=== PATIENT | male | born 1955 | race Caucasian/White ===

== ENCOUNTER → 2019-07-04 | Outpatient (REF) | payer OTHER ==
[~2019-07-04] MED LIST: ATOR40TA75 PO; CARV6.25 PO; CIPR-249 PO; FAMO1TAB11 PO; FLAG500T PO; FURO20TA2 PO; LISI2.5T76 PO; PLAV1TAB2 PO; SM S160C PO; TERA2CAP3 PO
[2019-07-04 16:58] LABS: ALBUMIN 3.6 GM/DL (3.2-5.2); ALT/SGPT 37 U/L (12-78); BILIRUBIN,TOTAL 0.5 MG/DL (0.2-1.0); BLOOD UREA NITROGEN 16 MG/DL (7-18); CALCIUM LEVEL 8.8 MG/DL (8.8-10.2); CARBON DIOXIDE LEVEL 28 MEQ/L (21-32); CHLORIDE LEVEL 110 MEQ/L (98-107); CHOLESTEROL LEVEL 88 MG/DL (<200); CHOLESTEROL RISK RATIO 2.315 (<5); CREATININE FOR GFR 0.91 MG/DL (0.70-1.30); GLOMERULAR FILTRATION RATE > 60.0 (>49); GLUCOSE, FASTING 107 MG/DL (70-100); HDL CHOLESTEROL 38 MG/DL (>40); LDL CHOLESTEROL 33 MG/DL (<100); NON-HDL-C 50 MG/DL; POTASSIUM SERUM 4.6 MEQ/L (3.5-5.1); SODIUM LEVEL 142 MEQ/L (136-145); TOTAL PROTEIN 7.1 GM/DL (6.4-8.2); TRIGLYCERIDES LEVEL 83 MG/DL (<150)
[2019-07-04 18:21] LABS: HEMOGLOBIN A1c 6.1 %
== END ==
LOC: M SFHCCLAY 10:29
PROVIDERS: ATTEND Family Medicine
DX: R73.01 Impaired fasting glucose (principal); I25.118 Atherosclerotic heart disease of native coronary artery with other forms of angina pectoris; R05 Cough

== ENCOUNTER 2019-07-13 00:22 | Observation (INO) | payer MEDICARE, OTHER ==
[~2019-07-13] VITALS: Ht 167.6 cm; Wt 82.7 kg
[2019-07-13] MEDS ORDERED: NS 1,000 ML IV ONE (00:45)
[2019-07-13 00:54] LABS: BASO % 0.2 % (0.0-1.0); EOS % 0.2 % (0.0-3.0); HEMATOCRIT 40.2 % (42.0-52.0); HEMOGLOBIN 13.6 g/dl (13.5-17.5); LYMPH # 1.5 10^3/uL (1.5-5.0); LYMPH % 8.7 % (24.0-44.0); MEAN CORPUSCULAR HEMOGLOBIN 33.7 pg (27.0-33.0); MEAN CORPUSCULAR HGB CONC 33.8 g/dl (32.0-36.5); MEAN CORPUSCULAR VOLUME 99.5 fl (80.0-96.0); MONO # 1.1 10^3/uL (0.0-0.8); MONO % 6.5 % (0.0-5.0); NEUTROPHILS # 14.3 10^3/uL (1.5-8.5); PLATELET COUNT, AUTOMATED 257 10^3/uL (150-450); RED BLOOD COUNT 4.04 10^6/uL (4.30-6.10)
[2019-07-13] MEDS ORDERED: METOCLOPRAMIDE INJ 10MG/2ML VIAL (J2765) IV ONE (01:15)
[2019-07-13 01:18] LABS: ALBUMIN 3.9 GM/DL (3.2-5.2); ALT/SGPT 40 U/L (12-78); BILIRUBIN,DIRECT 0.2 MG/DL (0.0-0.2); BILIRUBIN,TOTAL 0.8 MG/DL (0.2-1.0); BLOOD UREA NITROGEN 16 MG/DL (7-18); CALCIUM LEVEL 9.1 MG/DL (8.8-10.2); CARBON DIOXIDE LEVEL 24 MEQ/L (21-32); CHLORIDE LEVEL 109 MEQ/L (98-107); CK-MB VALUE MASS < 1.0 NG/ML (<3.6); CPK CREATINE PHOSPHOKINASE 106 U/L (39-308); CREATININE FOR GFR 1.04 MG/DL (0.70-1.30); GLOMERULAR FILTRATION RATE > 60.0 (>49); GLUCOSE, FASTING 131 MG/DL (70-100); LIPASE 363 U/L (73-393); MB/CK RELATIVE INDEX 0.94 (< OR =4); POTASSIUM SERUM 4.3 MEQ/L (3.5-5.1); SODIUM LEVEL 144 MEQ/L (136-145); TOTAL PROTEIN 7.4 GM/DL (6.4-8.2); TROPONIN I < 0.02 NG/ML (< 0.10)
[2019-07-13] MEDS ORDERED: NS 500 ML IV ONE (02:00)
[2019-07-13] MEDS ORDERED: HALOPERIDOL 5 MG/ML VIAL (J1630) IV STA (02:30)
[2019-07-13] MEDS ORDERED: diphenhydrAMINE INJ 50MG/ML VIAL (J1200) IV STA (02:30)
[2019-07-13] MEDS ORDERED: ISOVUE-370 76% 100ML VIAL (Q9967) As Ordered ONE (02:37)
--- NOTE | 2019-07-13 03:56 | REPVR ---
EXAM: CT Abdomen and Pelvis With Contrast EXAM DATE/TIME: 07/13/2019 2:44 AM CLINICAL HISTORY: 64 years old, male; Abdominal pain; Generalized TECHNIQUE: Imaging protocol: Computed tomography of the abdomen and pelvis with intravenous contrast. Radiation optimization: All CT scans at this facility use at least one of these dose optimization techniques: automated exposure control; mA and/or kV adjustment per patient size (includes targeted exams where dose is matched to clinical indication); or iterative reconstruction. Contrast material: ISOVUE 370; Contrast volume: 100 ml; Contrast route: IV; COMPARISON: No relevant prior studies available. FINDINGS: LUNG BASES: Mild atelectasis and/or pulmonary parenchymal scarring. VASCULAR: No abdominal aortic aneurysm, dissection, or retroperitoneal hematoma. Mild atherosclerosis. PERITONEAL : No free air or free fluid. GI: No hiatal hernia. The stomach is distended with an air-fluid level, to 23.3 cm in diameter. The duodenum is also fluid filled and slightly distended up to 3.3 cm in diameter. Gastric distention could be secondary to distal obstruction, differential would also include gastroparesis or gastric outlet obstruction. Fluid filled small bowel loops in the central upper abdomen are dilated up to 3.2 cm in diameter. There appears to be slight wall thickening and mesenteric edema associated with these loops. A focal point of transition is not identified, however small bowel loops in the pelvis are decompressed. Some small bowel loops distal to the site of dilation appear to be thickwalled. Findings are concerning for small bowel obstruction. Obstruction may be secondary to enteritis. Consider small bowel follow through for further evaluation. No pneumatosis intestinalis or mesenteric venous gas seen. Small nonspecific mesenteric lymph nodes noted. Scattered fecal material and gas within portions of the colon and rectum. No pericolonic inflammatory stranding. No evidence of acute diverticulitis. The appendix does not appear inflamed. Portions of the colon and rectum appear slightly thick walled but this could be artifact secondary to insufficient distention. HEPATOBILIARY, PANCREAS, SPLEEN: The liver is not enlarged. No enhancing hepatic lesion seen. No calcified gallstones or biliary dilation. No pancreatic inflammation. The spleen is hypoplastic and measures 3.3 x 1.5 cm. ADRENALS, KIDNEYS, BLADDER, RETROPERITONEAL: Adrenals within normal limits. No hydronephrosis. Symmetric renal enhancement. Mild nonspecific perinephric stranding. The urinary bladder appears slightly thickwalled but this may be artifact secondary to insufficient distention. Mild heterogeneity of the prostate with mild enlargement impressing along the base of the bladder. MUSCULOSKELETAL: Tiny fat containing umbilical hernia. Small fat containing right inguinal hernia. Mild degenerative changes of the spine and pelvis. No acute fracture or suspicious bone lesion. IMPRESSION: Gastric and proximal small bowel dilation. Gastrointestinal findings, differential and recommendations discussed above in detail. Other incidental findings discussed above. Electronically signed by: Elian Esposito On 07/13/2019 03:55:20 AM
[2019-07-13] MEDS ORDERED: SM S160C PO (05:30)
[2019-07-13] MEDS ORDERED: CARV6.25 PO (05:30)
[2019-07-13] MEDS ORDERED: FAMO1TAB11 PO (05:30)
[2019-07-13] MEDS ORDERED: TERA2CAP3 PO (05:30)
[2019-07-13] MEDS ORDERED: ATOR40TA75 PO (05:30)
[2019-07-13] MEDS ORDERED: PLAV1TAB2 PO (05:30)
[2019-07-13] MEDS ORDERED: FURO20TA2 PO (05:30)
[2019-07-13] MEDS ORDERED: LISI2.5T76 PO (05:37)
--- NOTE | 2019-07-13 05:42 | HPEPDOC ---
[facility] Medical History & Physical Date of Admission Jul 13, 2019 Date of Service: Jul 13, 2019 Primary Care Physician: Avery Doyle Attending Physician: BRE ELIZONDO MD History and Physical TIME OF SERVICE: 5:50 PM CHIEF COMPLAINT: Abdominal pain HISTORY OF PRESENT ILLNESS: This is a 64-year-old male who came to the hospital with complaints of left- sided 10/10 in severity, nonradiating abdominal pain that began last night. He went to a social event and while driving home, he developed nausea thereafter, he began vomiting. Because he had been vomiting several times. He called EMS. He admits to having blood in the vomit, fevers and chills, and chest pain due to the vomiting. After receiving pain medications. His pain improved to 2 out of 10 in severity. Per discussion with the ED attending the EKG and troponin were unremarkable, CT of the abdomen showed enteritis versus possible colitis; he received IV fluids, Zofran, Imodium, haloperidol, Benadryl and Reglan. REVIEW OF SYSTEMS: 12 point review of systems negative except as listed in HPI PAST MEDICAL/ SURGICAL HISTORY: CAD/sp stent ( status post 2 MIs) Chronic HTN Pre-DM GERD SOCIAL HISTORY: non-smoker lives alone FAMILY HISTORY: Cancer ALLERGIES: Please see below. HOME MEDICATIONS: Please see below. PHYSICAL EXAMINATION: VITAL SIGNS: Please see below. GENERAL APPEARANCE: Well-nourished, well-developed, not in apparent distress HEENT: Normocephalic, atraumatic, mucous members moist and pink, NG to suction with more than 200 mL of coffee-ground substance in suction container CARDIOVASCULAR: Regular rate and rhythm. No murmurs, rubs or gallops. Radial pulses are intact is no extremity edema LUNGS: Clear to auscultation bilaterally on room air ABDOMEN: Bowel sounds hypoactive. Abdomen soft, nontender, not distended, bowel sounds MUSCULOSKELETAL: Range of motion intact in all 4 extremities NEUROLOGICAL: Cranial nerves II-12 grossly intact. Speech not dysarthric PSYCHIATRIC: Alert and oriented, able to understand and follow commands LABORATORY DATA: See below. IMAGING: CT abdomen shows a distended stomach that could be due to distal obstruction versus enteritis. MICROBIOLOGY: Please see below. ASSESSMENT: Mr. Miller is a 64-year-old male with a past medical history of CA affecting the right ear, prediabetes, and hypertension who is admitted for management of nausea and vomiting due to enteritis versus small bowel obstruction. PLAN: Sepsis 2/2 Enteritis / SBO -SIRS criteria WBC # of 17 w lactic acid of 3.3 & RR of 20 -Qsofa Score = O = low risk Plan: admit to PCU / telemetry / Sepsis protocol w repeat lactic acid / one dose of Cipro / c/w IVF, NG to sucction /f/u blood cx / Zofran / NPO / Gen Surg Consult / Morphine PRN for pain 2. Coffee Ground Emesis possibly 2/2 retching -has hx of GERD -Hg wnl but pt is dehydrated -Senthil-Blatchford Score to identify low risk UGIB = 0 = "A GBS of 0 is a Low Risk GI bleed, and is highly sensitive (99.6% in a 2007 retrospective study) for predicting which patients did not require any medical intervention: blood transfusion, endoscopy, or surgery." Plan: IV PPI / Sandostatin / Cipro / f/u w Gen Surg / follow-up serial hemoglobin 3. CAD/sp stent Plan: hold oral meds 4. Chronic HTN Plan: IV labetalol when necessary while nothing by mouth 5. Pre-DM. Plan: Follow-up Accu-Cheks DVT px w SCDs Disposition pending clinical course Vital Signs Vital Signs Date Time Temp Pulse Resp B/P (MAP) Pulse Ox O2 Delivery O2 Flow Rate FiO2 07/13/19 03:15 98 93 07/13/19 03:00 154/77 (102) 07/13/19 00:34 97.9 18 Room Air Laboratory Data Labs 24H Laboratory Tests 2 07/13/19 00:44: Immature Granulocyte % (Auto) 0.4, White Blood Count 17.0H, Red Blood Count 4.04L, Hemoglobin 13.6, Hematocrit 40.2L, Mean Corpuscular Volume 99.5H, Mean Corpuscular Hemoglobin 33.7H, Mean Corpuscular Hemoglobin Concent 33.8, Red Cell Distribution Width 13.6, Platelet Count 257, Neutrophils (%) (Auto) 84.0H, Lymphocytes (%) (Auto) 8.7L, Monocytes (%) (Auto) 6.5H, Eosinophils (%) (Auto) 0.2, Basophils (%) (Auto) 0.2, Neutrophils # (Auto) 14.3H, Lymphocytes # (Auto) 1.5, Monocytes # (Auto) 1.1H, Eosinophils # (Auto) 0.0, Basophils # (Auto) 0.0, Nucleated Red Blood Cells % (auto) 0.0, Anion Gap 11, Glomerular Filtration Rate > 60.0, Lactic Acid Level 3.3*H, Calcium Level 9.1, Aspartate Amino Transf (AST/SGOT) 23, Alanine Aminotransferase (ALT/SGPT) 40, Alkaline Phosphatase 62, Total Bilirubin 0.8, Direct Bilirubin 0.2, Total Creatine Kinase 106, Creatine Kinase MB < 1.0, Creatine Kinase MB Relative Index 0.94, Troponin I < 0.02, Total Protein 7.4, Albumin 3.9, Albumin/Globulin Ratio 1.11, Lipase 363 CBC/BMP Laboratory Tests 07/13/19 00:44 Red Blood Count 4.04 L, Mean Corpuscular Volume 99.5 H, Mean Corpuscular Hemoglobin 33.7 H, Mean Corpuscular Hemoglobin Concent 33.8, Red Cell Dist ribution Width 13.6, Neutrophils (%) (Auto) 84.0 H, Lymphocytes (%) (Auto) 8.7 L, Monocytes (%) (Auto) 6.5 H, Eosinophils (%) (Auto) 0.2, Basophils (%) (Auto) 0.2, Neutrophils # (Auto) 14.3 H, Lymphocytes # (Auto) 1.5, Monocytes # (Auto) 1.1 H, Eosinophils # (Auto) 0.0, Basophils # (Auto) 0.0 Microbiology Microbiology 07/13/19 Blood Culture, Received Pending Home Medications Scheduled Atorvastatin Calcium (Atorvastatin Calcium) 40 Mg Tablet, 40 MG PO DAILY Carvedilol (Carvedilol) 6.25 Mg Tablet, 6.25 MG PO BID Clopidogrel Bisulfate (Plavix) 75 Mg Tablet, 75 MG PO DAILY Famotidine (Famotidine) 20 Mg Tablet, 20 MG PO QHS Furosemide (Furosemide) 20 Mg Tablet, 20 MG PO QHS Lisinopril (Lisinopril) 2.5 Mg Tablet, 2.5 MG PO DAILY DISCONTINUED BY PHYSICIAN ONE WEEK AGO Saw Eureka (Saw Eureka) 160 Mg Capsule, 160 MG PO DAILY Terazosin HCl (Terazosin HCl) 2 Mg Capsule, 2 MG PO QHS Allergies Coded Allergies: nisoldipine (Verified Allergy, Mild, agaitation, 07/13/19) A-FIB/CHADSVASC A-FIB History Current/History of A-Fib/PAF?: No Current PO Anticoag Therapy: No BRE ELIZONDO MD Jul 13, 2019 05:42
[2019-07-13] MEDS ORDERED: ONDANSETRON 4MG/2ML VIAL (J2405) IV PRN (05:45)
[2019-07-13] MEDS ORDERED: metroNIDAZOLE 500 MG in APPROPRIATE DILUENT 1 EA IV SCH (06:00)
[2019-07-13] MEDS ORDERED: MORPHINE 4 MG/ML 1ML VIAL/SYRINGE (J2270) IV PRN (06:00)
[2019-07-13] MEDS: NS 1,000 ML IV SCH ×3 (06:07→21:29)
[2019-07-13] MEDS ORDERED: LABETALOL HCL 100 MG/20 ML VIAL IV PRN (06:30)
[2019-07-13] MEDS ORDERED: CIPROFLOXACIN 400 MG in APPROPRIATE DILUENT 1 EA IV ONE (07:00)
[2019-07-13] MEDS ORDERED: OCTREOTIDE ACETATE 1,200 MCG in NS 238.8 ML IV SCH (07:30)
[2019-07-13 08:00] VITALS: BP 160/72
[2019-07-13] MEDS ORDERED: ENOXAPARIN 40 MG/0.4 ML SYRINGE (J1650) SC SCH (09:00)
[2019-07-13 12:00] VITALS: BP 136/73
[2019-07-13 16:00] VITALS: BP 140/90
--- NOTE | 2019-07-13 16:59 | CR ---
DATE OF CONSULTATION: 07/13/2019 REASON FOR CONSULTATION: Abdominal pain with nausea and vomiting, evaluate for possible obstruction. 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 He reports that he was feeling well on 07/12/2019. 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 After about an hour at the [employer] he began to feel some abdominal fullness and returned home. Shortly thereafter, he developed more severe pain in the left midabdomen and left upper quadrant. He developed vomiting and had multiple episodes of vomiting. The pain became very severe. He reported that he felt like he was unable even to drive himself to the emergency room so he called for an ambulance and he was brought in for evaluation. He reports that he had noticed some small streaks of blood in his emesis. In the emergency department, he received some antiemetics and fluid boluses as well as analgesics. His pain diminished. A nasogastric tube was placed. He had laboratory studies and a CT scan obtained. The CT scan revealed a fluid-filled, somewhat distended abdomen. There was some mild dilation of the proximal small bowel with fluid and some air. A transition point was not identified. The patient was admitted by the hospitalist for treatment but I am consulted to evaluate the patient regarding the possibility of an anatomic obstruction. MEDICATIONS: The patient's home medications include: - atorvastatin 40 mg by mouth daily - carvedilol 6.25 mg twice daily - clopidogrel 75 mg by mouth daily - famotidine 20 mg by mouth every night - furosemide 20 mg daily in the evening - lisinopril 2.5 mg by mouth daily, though the patient reports this had been stopped a week ago - saw palmetto 160 mg by mouth daily - terazosin 2 mg by mouth nightly ALLERGIES: The patient reports an allergy to NISOLDIPINE. PAST SURGICAL HISTORY: The patient denies any prior abdominal surgery. He did have several coronary artery stents placed back in 2015 and 2017. MEDICAL HISTORY: The patient had a myocardial infarction in 2016. He had three stents placed at that time and apparently had several additional stents placed in 2017. He has a history of benign prostatic hyperplasia. He has a history of hypertension. He has been having a cough and there has been some concern that that may be related to his lisinopril. SOCIAL HISTORY: The patient is single. 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 He is a nonsmoker and does not drink excessively. FAMILY HISTORY: His father apparently succumbed to pancreatic cancer. His mother is from a myocardial infarction. He has another sister who had pancreatic cancer and succumbed. REVIEW OF SYSTEMS: He has had no recent chest pain or palpitations. He denies any history of melena or hematochezia. There is no history of dysuria or hematuria. There are no bone or joint issues. He has no history of DVT or pulmonary embolus. He has not had any abdominal surgery and denies any history of similar prior episodes of abdominal pain and vomiting. PHYSICAL EXAMINATION: Patient is lying quietly in the hospital bed in the PCU. He has a small diameter nasogastric tube in place which is draining a small amount of watery, very slightly green colored fluid with some flecks of material. His most recent vital signs show him to be afebrile with a pulse of approximately 90 and blood pressure of 160/72. The patient is alert and oriented. Skin is warm and dry. Skin turgor is good. Neck is supple without mass. Heart exam shows a regular rate and rhythm. The lungs are clear to auscultation. The abdomen is nondistended. He has no evident scars. There is no sign of umbilical or inguinal hernia. He has bowel sounds present in all four quadrants. There is no tympany to percussion and no tenderness to percussion. The abdomen is soft throughout without significant tenderness at this time. Extremities are without edema and he has palpable radial and dorsalis pedis pulses. Laboratory studies from early this morning show white count of 17 with a hemoglobin of 14, hematocrit of 40 and platelet count of 257,000. His differential count at that time showed 84% neutrophils, 9% lymphocytes and 6% monocytes. His chemistry profile showed a sodium of 144, potassium 4.3, chloride 109, CO2 of 24, BUN of 16, creatinine 1.0 and a glucose of 131. Liver function tests were entirely normal with a total protein of 7.4 and albumin of 3.9. Lipase was normal at 363. He had an initial lactic acid of 3.3 but after hydration it was 1.2. I reviewed his CT scan images myself. He does have a primarily fluid-filled stomach. The duodenum and proximal jejunum is mildly distended with fluid but in the still upper abdomen the small bowel returns to normal caliber and otherwise appears normal with a normal colon. There is no free fluid and no free air. The gallbladder is without evidence of inflammation or gallstones. The spleen is atrophic or just very small. 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 This sounds more suggestive of either a sudden onset of some gastroenteritis or possibly something in the realm of food poisoning. He does not have a prior history of similar episodes. He has had no abdominal surgery and his x-ray I do not believe shows enough to suggest a definite anatomic obstruction. RECOMMENDATIONS: At this point I would continue his NG tube in place for now just to decompress his stomach. He should receive maintenance fluid as well as analgesics and antiemetics as necessary. I would anticipate that by the morning his NG output would decrease and as long as he has evidence for good bowel sounds I would probably remove his NG tube at that time and consider advancing him to some clear liquids. I will reassess him in the morning and see how things have progressed.
[2019-07-13 20:00] VITALS: BP 151/77
--- NOTE | 2019-07-13 20:33 | ECGEPIP ---
[facility] - ED Test Date: 2019-07-13 Pat Name: MICHELLE THORPE Department: Room: 0102 Gender: Male Retail Merchandiser: tremaine : 1955 Requested By: JARRET WYNN Order Number: [id number] Reading MD: Lyn Rivera Measurements Intervals [place] Rate: 86 P: 36 WI: 266 QRS: -10 QRSD: 80 T: 48 QT: 351 QTc: 421 Interpretive Statements SINUS RHYTHM WITH FIRST DEGREE AV BLOCK WITH OCCASIONAL SUPRAVENTRICULAR PREMATURE COMPLEXES INFERIOR MYOCARDIAL INFARCTION, OF INDETERMINATE AGE Anteroseptal infarct age indeterminate 07/20/16 STEMI ANTEROSEPTAL Electronically Signed on 07-13-2019 20:32:49 EDT by Lyn Rivera
[2019-07-13 23:59] VITALS: BP 144/70
[2019-07-14 04:00] VITALS: BP 160/79
[2019-07-14 05:47] LABS: BASO # 0.1 10^3/uL (0.0-0.2); BASO % 0.5 % (0.0-1.0); EOS # 0.2 10^3/uL (0.0-0.5); EOS % 1.1 % (0.0-3.0); HEMATOCRIT 34.7 % (42.0-52.0); HEMOGLOBIN 11.6 g/dl (13.5-17.5); LYMPH # 4.3 10^3/uL (1.5-5.0); LYMPH % 31.5 % (24.0-44.0); MEAN CORPUSCULAR HEMOGLOBIN 32.7 pg (27.0-33.0); MEAN CORPUSCULAR HGB CONC 33.4 g/dl (32.0-36.5); MEAN CORPUSCULAR VOLUME 97.7 fl (80.0-96.0); MONO # 1.6 10^3/uL (0.0-0.8); MONO % 11.4 % (0.0-5.0); NEUTROPHILS # 7.6 10^3/uL (1.5-8.5); NEUTROPHILS % 55.3 % (36.0-66.0); PLATELET COUNT, AUTOMATED 219 10^3/uL (150-450); RED BLOOD COUNT 3.55 10^6/uL (4.30-6.10); WHITE BLOOD COUNT 13.8 10^3/uL (4.0-10.0)
[2019-07-14 06:19] LABS: ALT/SGPT 27 U/L (12-78); BILIRUBIN,TOTAL 0.6 MG/DL (0.2-1.0); BLOOD UREA NITROGEN 18 MG/DL (7-18); CALCIUM LEVEL 7.7 MG/DL (8.8-10.2); CARBON DIOXIDE LEVEL 24 MEQ/L (21-32); CHLORIDE LEVEL 114 MEQ/L (98-107); CREATININE FOR GFR 0.93 MG/DL (0.70-1.30); GLOMERULAR FILTRATION RATE > 60.0 (>49); GLUCOSE, FASTING 92 MG/DL (70-100); MAGNESIUM LEVEL 1.8 MG/DL (1.8-2.4); POTASSIUM SERUM 3.9 MEQ/L (3.5-5.1); SODIUM LEVEL 144 MEQ/L (136-145)
[2019-07-14 08:00] VITALS: BP 142/82
[2019-07-14] MEDS ORDERED: E-Z-PAQUE 96% w/w SUSP 176GM BTL As Ordered ONE (08:18)
[2019-07-14] MEDS: NS 1,000 ML IV SCH (08:24)
--- NOTE | 2019-07-14 10:11 | IPNPDOC ---
Subjective Date Seen The patient was seen on 07/14/19. Subjective Chief Complaint/HPI Patient is feeling much better today after the NG tube was placed in and the contents were suctioned. No more abdominal pain. Awaiting surgical follow-up General: Denies: ROS Unobtainable, Chills, Night Sweats, Fatigue, Malaise, Normal Appetite, Other Symptoms Constitutional: Denies: Chills, Fever, Malaise, Night Sweats, Weakness, Fatigue, Weight Loss, Lethargy, Other Eyes: Denies: Pain, Vision change, Conjunctivae inflammation, Eyelid inflammation, Redness, Other ENT: Denies: Head Aches, Ear Pain, Dysphagia, Sinus Congestion, Post Nasal Drip, Sore Throat, Epistaxis, Other Symptoms Skin: Denies: Rash, Lesions, Jaundice, Bruising, Itching, Dry, Breakdown, Nail Changes, Other Pulmonary: Denies: Dyspnea, Cough, Pleuritic Chest Pain, Other Symptoms Cardiovascular: Denies: Chest Pain, Palpitations, Orthopnea, Paroxysmal Noc. Dyspnea, Edema, Lt Headedness, Other Symptoms Gastrointestinal: Denies: Nausea, Vomiting, Abdominal Pain, Diarrhea, Constipation, Melena, Hematochezia, Other Symptoms Musculoskeletal: Denies: Neck Pain, Back Pain, Shoulder Pain, Arm Pain, Hand Pain, Leg Pain, Foot Pain, Joint Pain, Muscle Pain, Spasms, Other Symptoms Neurological: Denies: Weakness, Numbness, Incoordination, Change in speech, Confusion, Seizures, Other Symptoms Objective Physical Examination General Exam: Positive: Alert, Cooperative ENT Exam: Positive: Atraumatic, Mucous membr. moist/pink Neck Exam: Positive: Supple Chest Exam: Positive: Clear to auscultation, Normal air movement Heart Exam: Positive: Rate Normal, Normal S1, Normal S2 Abdomen Exam: Positive: Normal bowel sounds Skin Exam: Positive: Nl turgor and temperature Neuro Exam: Positive: Normal Gait, Normal Speech Assessment /Plan Problems (1) Enteritis Status: Acute Problem Text: NG tube with intermittent suction was continued overnight and now clamped Patient responded to conservative medical management very well Will continue IV antibiotics including Cipro and Flagyl Continue IV fluids till patient starts eating again Surgery. Will follow patient today and if necessary will remove the NG tube and start patient diet as tolerated Level work in a.m. If he tolerates diet today and WBC and WBC is trending down. Patient is asymptomatic and possibly can be discharged home tomorrow (2) SBO (small bowel obstruction) Status: Acute Problem Text: Doubt SBO Discussed with surgery. Patient was seen and evaluated yesterday Advised to continue NG tube delivery evaluated by surgery today Patient is positive bowel sounds and possibly NG tube will be removed today and will start on oral feeding (3) HTN (hypertension) Status: Acute Problem Text: Under well control Plan/VTE VTE Prophylaxis Ordered?: Yes VS, I&O, 24H, Fishbone Vital Signs/I&O Vital Signs Date Time Temp Pulse Resp B/P (MAP) Pulse Ox O2 Delivery O2 Flow Rate FiO2 07/14/19 08:00 97.6 69 17 142/82 (102) 96 07/13/19 07:25 Room Air I&O- Last 24 Hours up to 6 AM 07/14/19 06:00 Intake Total 1100 ml Output Total 1950 ml Balance -850 ml Laboratory Data 24H LABS Laboratory Tests 2 07/14/19 05:36: Immature Granulocyte % (Auto) 0.2, White Blood Count 13.8H, Red Blood Count 3.55L, Hemoglobin 11.6L, Hematocrit 34.7L, Mean Corpuscular Volume 97.7H, Mean Corpuscular Hemoglobin 32.7, Mean Corpuscular Hemoglobin Concent 33.4, Red Cell Distribution Width 13.9, Platelet Count 219, Neutrophils (%) (Auto) 55.3, Lymphocytes (%) (Auto) 31.5, Monocytes (%) (Auto) 11.4H, Eosinophils (%) (Auto) 1.1, Basophils (%) (Auto) 0.5, Neutrophils # (Auto) 7.6, Lymphocytes # (Auto) 4.3, Monocytes # (Auto) 1.6H, Eosinophils # (Auto) 0.2, Basophils # (Auto) 0.1, Nucleated Red Blood Cells % (auto) 0.0, Anion Gap 6L, Glomerular Filtration Rate > 60.0, Blood Urea Nitrogen 18, Creatinine 0.93, Sodium Level 144, Potassium Level 3.9, Chloride Level 114H, Carbon Dioxide Level 24, Calcium Level 7.7#L, Aspartate Amino Transf (AST/SGOT) 18, Alanine Aminotransferase (ALT/SGPT) 27, A lkaline Phosphatase 48, Total Bilirubin 0.6, Total Protein 6.0L, Albumin 3.0#L, Magnesium Level 1.8, Albumin/Globulin Ratio 1.00 CBC/BMP Laboratory Tests 07/14/19 05:36 Red Blood Count 3.55 L, Mean Corpuscular Volume 97.7 H, Mean Corpuscular Hemoglobin 32.7, Mean Corpuscular Hemoglobin Concent 33.4, Red Cell Distribution Width 13.9, Neutrophils (%) (Auto) 55.3, Lymphocytes (%) (Auto) 31.5, Monocytes (%) (Auto) 11.4 H, Eosinophils (%) (Auto) 1.1, Basophils (%) (Auto) 0.5, Jackson trophils # (Auto) 7.6, Lymphocytes # (Auto) 4.3, Monocytes # (Auto) 1.6 H, Eosinophils # (Auto) 0.2, Basophils # (Auto) 0.1, Calcium Level 7.7 #L, Aspartate Amino Transf (AST/SGOT) 18, Alanine Aminotransferase (ALT/SGPT) 27, Alkaline Phosphatase 48, Total Bilirubin 0.6, Total Protein 6.0 L, Albumin 3.0 #L Microbiology Microbiology 07/13/19 Blood Culture - Preliminary, Resulted No growth after 24 hours . All specim... CHRISTINE VILLA MD Jul 14, 2019 10:11
[2019-07-14] MEDS ORDERED: ACETAMINOPHEN TAB 650MG DOSE (2X325MG) PO PRN (11:45)
[2019-07-14 12:00] VITALS: BP 158/88
[2019-07-14 16:00] VITALS: BP 138/68
--- NOTE | 2019-07-14 16:53 | REP ---
Small bowel follow-through series: History: Small bowel obstruction. Status post NG tube placement. Comparison CT study July 13, 2019. Fluoroscopy time is 0.4 minutes. Findings: Preliminary digital rough rib grader radiograph shows vascular calcification in the pelvis. Bowel gas pattern is normalized. Sequential films taken after the ingestion of oral barium demonstrate a nasogastric tube in the gastric body. The stomach and C-loop are decompressed. Ligament of Treitz and proximal jejunal loops are unremarkable. No small bowel mass lesion is seen. The right colon is opacified after 40 minutes which is normal transit time. Terminal ileum is unremarkable and well seen. No fold thickening or fistula or stricture is identified. Impression: Unremarkable small bowel follow-through series. The previously noted small bowel obstruction pattern has resolved post NG tube placement. Electronically Signed by Siva Yanez MD 07/14/2019 05:12 P
[2019-07-14 20:00] VITALS: BP 152/87
[2019-07-14] MEDS: CARVedilol 6.25 MG TAB PO SCH (22:41)
[2019-07-14] MEDS: TERAZOSIN 1 MG CAP PO SCH (22:42)
[2019-07-15] VITALS (8 sets, daily range): BP systolic 126–174; BP diastolic 66–89
[2019-07-15] MEDS ORDERED: SLF 3 ML SYR IV PRN (01:30)
--- NOTE | 2019-07-15 06:24 | IPN ---
DATE OF SERVICE: 07/14/2019 HISTORY: The patient was admitted on the with a history of sudden onset of severe left upper and left mid abdominal pain with nausea and vomiting repeatedly. He had a CT scan that had suggested the possibility of a proximal obstruction, though there was no definite transition point identified. His history sounded more consistent with acute onset of enteritis or gastroenteritis. He had an NG tube placed and has been monitored on some IV hydration. This morning, he underwent an upper GI series with small-bowel follow-through that shows the contrast flowing freely through to his colon without any restriction. Earlier in the day, I ordered removal of the NG tube and started him on some clear liquids. Vital signs show that he has been afebrile with a pulse in the 60s to 70s and a normal blood pressure. Intake and output show that yesterday he had a total of 2100 in with 1800 out. PHYSICAL EXAMINATION: The patient is lying quietly in the bed. He has been drinking clear liquids without difficulty. The abdomen is nondistended and soft and without significant tenderness. LABORATORY STUDIES: Show a white count of 14,000 with a hemoglobin of 12, hematocrit of 35 and a platelet count of 219,000. His differential count is normal. His chemistry profile shows no dramatic abnormalities. IMPRESSION: Patient has resolved his abdominal pain and vomiting with a GI series showing free flow of contrast to the colon. PLAN: The patient's NG tube was discontinued early in the day with institution of clear liquids. I will saline lock his IV tonight and start him on a regular diet morning and if he tolerates the diet ge can be discharged home from my standpoint. There is no need for surgical followup.
[2019-07-15] MEDS: SLF 3 ML SYR IV SCH ×3 (06:27→20:12)
[2019-07-15 08:15] LABS: HEMATOCRIT 35.4 % (42.0-52.0); HEMOGLOBIN 12.2 g/dl (13.5-17.5); MEAN CORPUSCULAR HEMOGLOBIN 33.8 pg (27.0-33.0); MEAN CORPUSCULAR HGB CONC 34.5 g/dl (32.0-36.5); MEAN CORPUSCULAR VOLUME 98.1 fl (80.0-96.0); PLATELET COUNT, AUTOMATED 212 10^3/uL (150-450); RED BLOOD COUNT 3.61 10^6/uL (4.30-6.10); WHITE BLOOD COUNT 10.2 10^3/uL (4.0-10.0)
[2019-07-15] MEDS: ATORVASTATIN 20 MG TAB PO SCH (08:38)
[2019-07-15] MEDS: CARVedilol 6.25 MG TAB PO SCH ×2 (08:39→20:12)
[2019-07-15 08:47] LABS: ALBUMIN 3.1 GM/DL (3.2-5.2); ALT/SGPT 28 U/L (12-78); BILIRUBIN,TOTAL 0.7 MG/DL (0.2-1.0); BLOOD UREA NITROGEN 10 MG/DL (7-18); CALCIUM LEVEL 8.1 MG/DL (8.8-10.2); CARBON DIOXIDE LEVEL 23 MEQ/L (21-32); CHLORIDE LEVEL 112 MEQ/L (98-107); CREATININE FOR GFR 0.81 MG/DL (0.70-1.30); GLOMERULAR FILTRATION RATE > 60.0 (>49); GLUCOSE, FASTING 99 MG/DL (70-100); POTASSIUM SERUM 3.6 MEQ/L (3.5-5.1); SODIUM LEVEL 143 MEQ/L (136-145); TOTAL PROTEIN 6.5 GM/DL (6.4-8.2)
--- NOTE | 2019-07-15 10:43 | IPNPDOC ---
Subjective Date Seen The patient was seen on 07/15/19. Subjective Chief Complaint/HPI Patient NG tube is out, he is been started on regular diet. Patient had an episode of nausea early this morning which resolved spontaneously General: Denies: ROS Unobtainable, Chills, Night Sweats, Fatigue, Malaise, Normal Appetite, Other Symptoms Constitutional: Denies: Chills, Fever, Malaise, Night Sweats, Weakness, Fatigue, Weight Loss, Lethargy, Other Eyes: Denies: Pain, Vision change, Conjunctivae inflammation, Eyelid inflammation, Redness, Other ENT: Denies: Head Aches, Ear Pain, Dysphagia, Sinus Congestion, Post Nasal Drip, Sore Throat, Epistaxis, Other Symptoms Skin: Denies: Rash, Lesions, Jaundice, Bruising, Itching, Dry, Breakdown, Nail Changes, Other Pulmonary: Denies: Dyspnea, Cough, Pleuritic Chest Pain, Other Symptoms Cardiovascular: Denies: Chest Pain, Palpitations, Orthopnea, Paroxysmal Noc. Dyspnea, Edema, Lt Headedness, Other Symptoms Gastrointestinal: Reports: Nausea; Denies: Vomiting, Abdominal Pain, Diarrhea, Constipation, Melena, H ematochezia, Other Symptoms Musculoskeletal: Denies: Neck Pain, Back Pain, Shoulder Pain, Arm Pain, Hand Pain, Leg Pain, Foot Pain, Joint Pain, Muscle Pain, Spasms, Other Symptoms Neurological: Denies: Weakness, Numbness, Incoordination, Change in speech, Confusion, Seizures, Other Symptoms Objective Physical Examination ENT Exam: Positive: Atraumatic, Mucous membr. moist/pink Neck Exam: Positive: Supple Chest Exam: Positive: Clear to auscultation, Normal air movement Heart Exam: Positive: Rate Normal, Normal S1, Normal S2 Abdomen Exam: Positive: Normal bowel sounds, Soft Skin Exam: Positive: Nl turgor and temperature Neuro Exam: Positive: Normal Gait, Normal Speech Assessment /Plan Problems (1) Enteritis Status: Acute Problem Text: Patient is NG tube has been taken out Has been started on regular diet. As of this morning and will monitor him for 24 hours had an episode of nausea early this morning Continue Flagyl and Cipro IV can be changed to by mouth on discharge DC IV fluid once he is eating his regular food If patient tolerates his diet and no more symptoms, then he can be discharged home tomorrow morning (2) SBO (small bowel obstruction) Status: Acute Problem Text: Doubt SBO Discussed with surgery. Patient was seen and evaluated yesterday Advised to continue NG tube delivery evaluated by surgery today Patient is positive bowel sounds and possibly NG tube will be removed today and will start on oral feeding (3) HTN (hypertension) Status: Acute Problem Text: Under well control Start home meds Plan/VTE VTE Prophylaxis Ordered?: Yes VS, I&O, 24H, Fishbone Vital Signs/I&O Vital Signs Date Time Temp Pulse Resp B/P (MAP) Pulse Ox O2 Delivery O2 Flow Rate FiO2 07/15/19 08:39 142/68 07/15/19 08:00 97.4 71 20 97 07/13/19 07:25 Room Air I&O- Last 24 Hours up to 6 AM 07/15/19 05:59 Intake Total 1570 ml Output Total 1330 ml Balance 240 ml Laboratory Data 24H LABS Laboratory Tests 2 07/15/19 07:48: Nucleated Red Blood Cells % (auto) 0.0, Anion Gap 8, Glomerular Filtration Rate > 60.0, Blood Urea Nitrogen 10, Creatinine 0.81, Sodium Level 143, Potassium Level 3.6, Chloride Level 112H, Carbon Dioxide Level 23, Calcium Level 8.1L, Aspartate Amino Transf (AST/SGOT) 22, Alanine Aminotransferase (ALT/SGPT) 28, Alkaline Phosphatase 48, Total Bilirubin 0.7, Total Protein 6.5, Albumin 3.1L, Albumin/Globulin Ratio 0.91L CBC/BMP Laboratory Tests 07/15/19 07:48 Red Blood Count 3.61 L, Mean Corpuscular Volume 98.1 H, Mean Corpuscular Hemoglobin 33.8 H, Mean Corpuscular Hemoglobin Concent 34.5, Red Cell Distribution Width 13.4, Calcium Level 8.1 L, Aspartate Amino Transf (AST/SGOT) 22, Alanine Aminotransferase (ALT/SGPT) 28, Alkaline Phosphatase 48, Total Bilirubin 0.7, Total Protein 6.5, Albumin 3.1 L Microbiology Microbiology 07/13/19 Blood Culture - Preliminary, Resulted No Growth after 48 hours. All Specime... CHRISTINE VILLA MD Jul 15, 2019 10:43
[2019-07-15] MEDS: TERAZOSIN 1 MG CAP PO SCH (20:11)
[2019-07-16] VITALS: BP 122/69
[2019-07-16 04:00] VITALS: BP 128/73
[2019-07-16 05:50] LABS: BASO % 0.3 % (0.0-1.0); EOS # 0.5 10^3/uL (0.0-0.5); EOS % 4.9 % (0.0-3.0); HEMATOCRIT 34.8 % (42.0-52.0); LYMPH # 4.2 10^3/uL (1.5-5.0); LYMPH % 37.6 % (24.0-44.0); MEAN CORPUSCULAR HEMOGLOBIN 33.5 pg (27.0-33.0); MEAN CORPUSCULAR HGB CONC 34.5 g/dl (32.0-36.5); MEAN CORPUSCULAR VOLUME 97.2 fl (80.0-96.0); MONO # 1.2 10^3/uL (0.0-0.8); MONO % 11.2 % (0.0-5.0); NEUTROPHILS # 5.1 10^3/uL (1.5-8.5); NEUTROPHILS % 45.7 % (36.0-66.0); PLATELET COUNT, AUTOMATED 223 10^3/uL (150-450); RED BLOOD COUNT 3.58 10^6/uL (4.30-6.10); WHITE BLOOD COUNT 11.1 10^3/uL (4.0-10.0)
[2019-07-16] MEDS: SLF 3 ML SYR IV SCH (06:00)
[2019-07-16 06:22] LABS: ALBUMIN 2.9 GM/DL (3.2-5.2); ALT/SGPT 26 U/L (12-78); BILIRUBIN,TOTAL 0.7 MG/DL (0.2-1.0); BLOOD UREA NITROGEN 16 MG/DL (7-18); CALCIUM LEVEL 7.9 MG/DL (8.8-10.2); CARBON DIOXIDE LEVEL 22 MEQ/L (21-32); CHLORIDE LEVEL 113 MEQ/L (98-107); CREATININE FOR GFR 0.86 MG/DL (0.70-1.30); GLOMERULAR FILTRATION RATE > 60.0 (>49); GLUCOSE, FASTING 95 MG/DL (70-100); POTASSIUM SERUM 3.7 MEQ/L (3.5-5.1); SODIUM LEVEL 142 MEQ/L (136-145); TOTAL PROTEIN 6.2 GM/DL (6.4-8.2)
[2019-07-16] MEDS ORDERED: FLAG500T PO (07:22)
[2019-07-16] MEDS ORDERED: CIPR-249 PO (07:22)
[2019-07-16 08:00] VITALS: BP 140/80
[2019-07-16] MEDS: CARVedilol 6.25 MG TAB PO SCH (09:20)
[2019-07-16] MEDS: ATORVASTATIN 20 MG TAB PO SCH (09:20)
--- NOTE | 2019-07-16 13:19 | DSES ---
DATE OF ADMISSION: 07/13/2019 DATE OF DISCHARGE: 07/16/2019 CONSULTANTS: Dr. Campos DISCHARGE DIAGNOSES: 1. Gastroenteritis. 2. Bowel obstruction ruled out. 3. History of coronary artery disease, stent. 4. Chronic hypertension. 5. Prediabetic. 6. Reflux disease. DISCHARGE MEDICATIONS: - Cipro 500 mg twice a day for 7 days - Flagyl 500 mg for 7 days - atorvastatin 40 mg daily - Coreg 6.25 mg twice a day - Plavix 75 mg daily - famotidine 20 mg at night - Lasix 20 mg at night - Lisinopril 2.5 mg daily - saw palmetto 150 mg daily - terazosin 2 mg at night HOSPITAL COURSE: 64-year-old male was eating hors d'oeuvre's and then developed acute abdominal pain, nausea and vomiting, which was persistent and presented to the emergency room and was found to have enteritis, question for bowel obstruction on CT of the abdomen. Dr. Campos was consulted, who felt that the patient had no risk factors for bowel obstruction and thought that it was more gastroenteritis. The patient was decompressed with nasogastric tube placement to low intermittent suctioning with adequate output. He was then slowly advanced from nothing by mouth status back to a no added salt diet with some improvement. He did receive ciprofloxacin and Flagyl with a white count of 17,000 on admission and white count of 11,000 on hospital discharge. He remained afebrile without nausea or vomiting. His lactic acid improved with IV fluid hydration from admission 3.3 to discharge of 1.2. Blood cultures were negative times two sets. Small bowel x-ray showed unremarkable small bowel follow through series. CT of the abdomen and pelvis on admission showed gastric and proximal small bowel dilation. Differential includes gastric outlet obstruction and gastroparesis. Obstruction may be secondary to enteritis, concerning for small bowel obstruction. Per Dr. Campos of general surgery, the patient was stable for hospital discharge. LABORATORIES ON DISCHARGE: White count 11, hemoglobin 12, hematocrit 34, platelet count 223. Sodium 142, potassium 3.7, chloride 113, bicarbonate 22, BUN 16, creatinine 0.8, glucose of 95. Blood culture on 07/13/2019 was no growth after 72 hours. Time spent on discharge: 30 minutes. [facility]
== END 2019-07-16 11:52 | disposition home or self-care (01) ==
LOC: M ED 00:22 → M ED INP 00:23 → M PCU 07:44
PROVIDERS: ADMIT Internal Medicine; ATTEND Internal Medicine
DX: K52.9 Noninfective gastroenteritis and colitis, unspecified (principal); I10 Essential (primary) hypertension; R73.03 Prediabetes; I25.10 Atherosclerotic heart disease of native coronary artery without angina pectoris; Z98.61 Coronary angioplasty status; K21.9 Gastro-esophageal reflux disease without esophagitis; N40.0 Benign prostatic hyperplasia without lower urinary tract symptoms; I25.2 Old myocardial infarction; Z79.02 Long term (current) use of antithrombotics/antiplatelets; Z79.899 Other long term (current) drug therapy
CPT/HCPCS: 36415; 74177; 74250; 80048; 80053; 80076; 82550; 82553; 83605; 83690; 83735; 84484; 85018; 85025; 85027; 86850; 86900; 86901; 87040; 93005; 96361; 96372; 96374; 96375; 99285; G0378; J0744; J1200; J1630; J2354; J2765; Q9967

== ENCOUNTER → 2023-01-12 | Outpatient (CLI) | payer MEDICARE ==
[~2023-01-12] MED LIST changes: +CLOP75TA99 PO; -LISI2.5T76 PO; +LISI2.5T8 PO; -PLAV1TAB2 PO; +RA S160C PO; -SM S160C PO
== END ==
LOC: M CLY 08:57
PROVIDERS: ATTEND Family Medicine
DX: M43.06 Spondylolysis, lumbar region (principal); M54.16 Radiculopathy, lumbar region

== ENCOUNTER → 2023-01-12 | Outpatient (REF) | payer MEDICARE ==
[2023-01-12 11:47] LABS: BASO % 0.3 % (0.0-1.0); EOS # 0.2 10^3/uL (0.0-0.5); EOS % 2.7 % (0.0-3.0); HEMATOCRIT 37.1 % (42.0-52.0); HEMOGLOBIN 12.2 g/dl (13.5-17.5); LYMPH # 3.2 10^3/uL (1.5-5.0); LYMPH % 36.6 % (24.0-44.0); MEAN CORPUSCULAR HEMOGLOBIN 33.4 pg (27.0-33.0); MEAN CORPUSCULAR HGB CONC 32.9 g/dl (32.0-36.5); MEAN CORPUSCULAR VOLUME 101.6 fl (80.0-96.0); MONO % 11.9 % (2.0-8.0); NEUTROPHILS # 4.2 10^3/uL (1.5-8.5); NEUTROPHILS % 48.3 % (36.0-66.0); PLATELET COUNT, AUTOMATED 223 10^3/uL (150-450); RED BLOOD COUNT 3.65 10^6/uL (4.30-6.10); WHITE BLOOD COUNT 8.7 10^3/uL (4.0-10.0)
[2023-01-12 11:48] LABS: C REACTIVE PROTEIN QUANTITATIV < 0.40 MG/DL (<1.0)
[2023-01-12 11:50] LABS: RHEUMATOID FACTOR QUANT < 3.5 IU/ML (<14)
[2023-01-12 11:53] LABS: ALBUMIN 3.7 G/DL (3.2-5.2); ALKALINE PHOSPHATASE 72 U/L (46-116); ALT/SGPT 32 U/L (7.0-40); AST/SGOT 24 U/L (<34); BILIRUBIN,TOTAL 0.5 MG/DL (0.3-1.2); BLOOD UREA NITROGEN 22 MG/DL (9-23); CALCIUM LEVEL 8.9 MG/DL (8.3-10.6); CARBON DIOXIDE LEVEL 26 MMOL/L (20-31); CHLORIDE LEVEL 109 MMOL/L (98-107); CHOLESTEROL LEVEL 94 MG/DL (<200); CHOLESTEROL RISK RATIO 2.55 (<5); CREATININE FOR GFR 0.84 MG/DL (0.70-1.30); GLOMERULAR FILTRATION RATE > 60.0 (>49); GLUCOSE, FASTING 102 MG/DL (74-106); HDL CHOLESTEROL 36.8 MG/DL (>40); LDL CHOLESTEROL 41.2 MG/DL (<100); MAGNESIUM LEVEL 1.9 MG/DL (1.8-2.4); NON-HDL-C 57.2 MG/DL; POTASSIUM SERUM 4.8 MMOL/L (3.5-5.1); SODIUM LEVEL 142 MMOL/L (136-145); TOTAL PROTEIN 6.6 G/DL (5.7-8.2); TRIGLYCERIDES LEVEL 80 MG/DL (<150)
[2023-01-12 11:59] LABS: HEMOGLOBIN A1c 5.5 % (4.0-6.0)
[2023-01-12 12:05] LABS: ERYTHROCYTE SEDIMENTATION RATE 5 mm/hr (0-20)
[2023-01-13 21:07] LABS: ANA (HEP2) Negative (.); CYCLIC CITRULLINATED PEPTIDE < 1 units (0-19)
== END ==
LOC: M SFHCCLAY 08:39
PROVIDERS: ATTEND Family Medicine
DX: M19.90 Unspecified osteoarthritis, unspecified site (principal); K21.9 Gastro-esophageal reflux disease without esophagitis; R73.01 Impaired fasting glucose; I25.118 Atherosclerotic heart disease of native coronary artery with other forms of angina pectoris; Z12.5 Encounter for screening for malignant neoplasm of prostate
CPT/HCPCS: 80053; 80061; 83036; 83735; 85025; 85652; 86038; 86140; 86200; 86431; G0103

== ENCOUNTER → 2023-03-05 | Outpatient (CLI) | payer MEDICARE | LOC: M RAD 07:05 | PROVIDERS: ATTEND Pain Medicine Interventional Pain Medicine | DX: M54.16 Radiculopathy, lumbar region (principal) ==

== ENCOUNTER → 2023-10-12 | Outpatient (CLI) | payer MEDICARE | LOC: M RAD 10:56 | PROVIDERS: ATTEND Nurse Practitioner Family | DX: I77.9 Disorder of arteries and arterioles, unspecified (principal); I65.23 Occlusion and stenosis of bilateral carotid arteries ==

== ENCOUNTER → 2024-01-17 | Outpatient (REF) | payer MEDICARE ==
[2024-01-17 17:25] LABS: ALBUMIN 3.6 G/DL (3.2-5.2); ALKALINE PHOSPHATASE 69 U/L (46-116); ALT/SGPT 61 U/L (7.0-40); AST/SGOT 38 U/L (<34); BILIRUBIN,TOTAL 0.5 MG/DL (0.3-1.2); BLOOD UREA NITROGEN 22 MG/DL (9-23); CALCIUM LEVEL 8.9 MG/DL (8.3-10.6); CARBON DIOXIDE LEVEL 26 MMOL/L (20-31); CHLORIDE LEVEL 109 MMOL/L (98-107); CREATININE FOR GFR 0.84 MG/DL (0.70-1.30); FOLATE 21.11 NG/ML (>5.4); GLOMERULAR FILTRATION RATE > 60.0 (>49); GLUCOSE, FASTING 101 MG/DL (74-106); IRON (FE) 99 UG/DL (65-175); MAGNESIUM LEVEL 2.1 MG/DL (1.8-2.4); POTASSIUM SERUM 4.8 MMOL/L (3.5-5.1); SODIUM LEVEL 139 MMOL/L (136-145); TOTAL PROTEIN 6.5 G/DL (5.7-8.2); VITAMIN B12 LEVEL 795 PG/ML (211-911)
[2024-01-17 17:59] LABS: HEMATOCRIT 36.9 % (42.0-52.0); HEMOGLOBIN 12.2 g/dl (13.5-17.5); MEAN CORPUSCULAR HEMOGLOBIN 33.2 pg (27.0-33.0); MEAN CORPUSCULAR HGB CONC 33.1 g/dl (32.0-36.5); MEAN CORPUSCULAR VOLUME 100.5 fl (80.0-96.0); PLATELET COUNT, AUTOMATED 233 10^3/uL (150-450); RED BLOOD COUNT 3.67 10^6/uL (4.30-6.10); WHITE BLOOD COUNT 9.1 10^3/uL (4.0-10.0)
[2024-01-17 18:15] LABS: HEMOGLOBIN A1c 5.6 % (4.0-6.0)
== END ==
LOC: M SFHCCLAY 13:33
PROVIDERS: ATTEND Family Medicine
DX: D64.9 Anemia, unspecified (principal); R73.01 Impaired fasting glucose; K21.9 Gastro-esophageal reflux disease without esophagitis

== ENCOUNTER 2024-04-18 09:11 | Emergency (ER) | payer MEDICARE ==
[~2024-04-18] VITALS: Ht 167.6 cm; Wt 80.8 kg
[2024-04-18] MEDS ORDERED: ASPI81TA26 PO (09:23)
[2024-04-18] MEDS ORDERED: MELO15TA28 (09:23)
[2024-04-18] MEDS ORDERED: NAPR220C14 PO (09:23)
[2024-04-18 10:20] LABS: BASO % 0.4 % (0.0-1.0); EOS # 0.1 10^3/uL (0.0-0.5); EOS % 1.3 % (0.0-3.0); HEMATOCRIT 35.3 % (42.0-52.0); HEMOGLOBIN 12.1 g/dl (13.5-17.5); LYMPH # 2.4 10^3/uL (1.5-5.0); LYMPH % 29.4 % (24.0-44.0); MEAN CORPUSCULAR HEMOGLOBIN 33.7 pg (27.0-33.0); MEAN CORPUSCULAR HGB CONC 34.3 g/dl (32.0-36.5); MEAN CORPUSCULAR VOLUME 98.3 fl (80.0-96.0); MONO # 0.9 10^3/uL (0.0-0.8); MONO % 10.3 % (2.0-8.0); NEUTROPHILS # 4.8 10^3/uL (1.5-8.5); NEUTROPHILS % 58.5 % (36.0-66.0); RED BLOOD COUNT 3.59 10^6/uL (4.30-6.10); WHITE BLOOD COUNT 8.2 10^3/uL (4.0-10.0)
[2024-04-18 10:29] LABS: INR 1.03; PROTHROMBIN TIME 13.2 SECONDS (12.5-14.5)
[2024-04-18 10:40] LABS: LIPASE 42 U/L (12-53)
[2024-04-18 10:43] LABS: ALBUMIN 3.7 G/DL (3.2-5.2); ALKALINE PHOSPHATASE 69 U/L (46-116); ALT/SGPT 32 U/L (7.0-40); AST/SGOT 20 U/L (<34); BILIRUBIN,DIRECT 0.3 MG/DL (<0.4); BILIRUBIN,TOTAL 0.8 MG/DL (0.3-1.2); BLOOD UREA NITROGEN 23 MG/DL (9-23); CALCIUM LEVEL 8.4 MG/DL (8.3-10.6); CARBON DIOXIDE LEVEL 26 MMOL/L (20-31); CHLORIDE LEVEL 108 MMOL/L (98-107); CK-MB VALUE MASS < 1.0 NG/ML (<3.6); CPK CREATINE PHOSPHOKINASE 115 U/L (46-171); GLOMERULAR FILTRATION RATE > 60.0 (>49); GLUCOSE, FASTING 133 MG/DL (74-106); MB/CK RELATIVE INDEX 0.86 (< OR =4); POTASSIUM SERUM 4.3 MMOL/L (3.5-5.1); SODIUM LEVEL 139 MMOL/L (136-145); TOTAL PROTEIN 6.5 G/DL (5.7-8.2)
[2024-04-18 10:46] LABS: THYROID STIMULATING HORMONE 1.268 uIU/ML (0.55-4.78)
[2024-04-18 10:47] LABS: FREE T4 1.25 NG/DL (0.89-1.76)
[2024-04-18 11:07] LABS: PLATELET COUNT, AUTOMATED 176 10^3/uL (150-450)
[2024-04-18 12:11] LABS: CK-MB VALUE MASS < 1.0 NG/ML (<3.6)
[2024-04-18 12:12] LABS: CPK CREATINE PHOSPHOKINASE 110 U/L (46-171)
[2024-04-18] MEDS: CYCLOBENZAPRINE 5MG TABLET PO ONE (12:40)
[2024-04-18] MEDS: KETOROLAC 30 MG/ML 1ML VIAL IV ONE (12:40)
[2024-04-18] MEDS ORDERED: KETO10TAB PO (14:37)
[2024-04-18] MEDS ORDERED: CYCL5TAB PO (14:37)
[2024-04-18] MEDS ORDERED: HOLTER MONITOR XX (14:38)
[2024-04-18 15:45] VITALS: BP 154/80; TEMP 98.2; O2SAT 98
== END 2024-04-18 15:47 | disposition home or self-care (01) ==
LOC: M ED 09:11
DX: R00.2 Palpitations (principal); R07.9 Chest pain, unspecified; I44.0 Atrioventricular block, first degree; I25.2 Old myocardial infarction; I50.22 Chronic systolic (congestive) heart failure; I25.119 Atherosclerotic heart disease of native coronary artery with unspecified angina pectoris; I11.0 Hypertensive heart disease with heart failure; Z88.8 Allergy status to other drugs, medicaments and biological substances; Z79.1 Long term (current) use of non-steroidal anti-inflammatories (NSAID); Z79.899 Other long term (current) drug therapy
CPT/HCPCS: 71045; 72131; 80048; 80076; 82550; 82553; 83690; 83880; 84439; 84443; 84484; 85025; 85610; 93005; 93041; 93970; 94760; 96374; 99285; J1885

== ENCOUNTER → 2025-03-05 | Outpatient (REF) | payer MEDICARE ==
[~2025-03-05] MED LIST changes: +ASPI81TA26 PO; +CYCL5TAB4 PO; +HOLTER MONITOR XX; +KETO10TAB PO; +MELO15TA28; +NAPR220C14 PO; -RA S160C PO; +SAW160CA23 PO
[2025-03-05 18:55] LABS: HEMATOCRIT 35.1 % (42.0-52.0); HEMOGLOBIN 11.7 g/dl (13.5-17.5); MEAN CORPUSCULAR HEMOGLOBIN 33.3 pg (27.0-33.0); MEAN CORPUSCULAR HGB CONC 33.3 g/dl (32.0-36.5); PLATELET COUNT, AUTOMATED 200 10^3/uL (150-450); RED BLOOD COUNT 3.51 10^6/uL (4.30-6.10); WHITE BLOOD COUNT 8.8 10^3/uL (4.0-10.0)
[2025-03-05 18:58] LABS: ALBUMIN 3.4 G/DL (3.2-5.2); BILIRUBIN,TOTAL 0.5 MG/DL (0.3-1.2); CALCIUM LEVEL 8.5 MG/DL (8.3-10.6); CHOLESTEROL RISK RATIO 2.38 (<5); CREATININE FOR GFR 0.94 MG/DL (0.70-1.30); GLOMERULAR FILTRATION RATE 87.2 (>42); HDL CHOLESTEROL 41.5 MG/DL (>40); LDL CHOLESTEROL 39.1 MG/DL (<100); MAGNESIUM LEVEL 1.8 MG/DL (1.8-2.4); NON-HDL-C 57.5 MG/DL; POTASSIUM SERUM 4.5 MMOL/L (3.5-5.1); TOTAL PROTEIN 6.2 G/DL (5.7-8.2)
[2025-03-05 19:41] LABS: HEMOGLOBIN A1c 5.5 % (4.0-6.0)
== END ==
LOC: M SFHCCLAY 10:21
PROVIDERS: ATTEND Family Medicine
DX: D64.9 Anemia, unspecified (principal); R73.01 Impaired fasting glucose; I25.118 Atherosclerotic heart disease of native coronary artery with other forms of angina pectoris; K21.9 Gastro-esophageal reflux disease without esophagitis

== ENCOUNTER → 2025-08-06 | Outpatient (CLI) | payer MEDICARE | LOC: M RAD 12:21 | PROVIDERS: ATTEND Nurse Practitioner Family | DX: I65.23 Occlusion and stenosis of bilateral carotid arteries (principal) ==

== ENCOUNTER → 2025-09-09 | Outpatient (CLI) | payer MEDICARE | LOC: M OUTALCOH 07:45 | PROVIDERS: ATTEND Psychiatry & Neurology Psychiatry | DX: Z03.89 Encounter for observation for other suspected diseases and conditions ruled out (principal) ==

== ENCOUNTER 2025-09-21 08:31 | Outpatient (RCR) | payer MEDICARE | END 2025-10-04 | LOC: M OUTALCOH 08:31 | PROVIDERS: ATTEND Psychiatry & Neurology Psychiatry | DX: F10.10 Alcohol abuse, uncomplicated (principal) ==

== ENCOUNTER 2025-10-20 09:41 | Outpatient (RCR) | payer MEDICARE | END 2025-11-04 | LOC: M OUTALCOH 09:41 | PROVIDERS: ATTEND Psychiatry & Neurology Psychiatry | DX: F10.10 Alcohol abuse, uncomplicated (principal) ==